=== PATIENT | female | born 1990 | race Caucasian/White ===

== ENCOUNTER 2024-10-04 09:40 | Emergency (ER) | payer OTHER, SELFPAY ==
[2024-10-04 10:38] VITALS: BP 152/92; PULSE 125; RESP 18; TEMP 37.7; O2SAT 98; BMI 43.4
[2024-10-04 11:09] LABS: Basophils Percent Auto 0.3 % (0-2); Eosinophils Percent Auto 0.3 % (0-4); Hematocrit 39.7 % (37.0-47.0); Imm Gran Abs Auto 0.07 X10*3/uL (0.00-0.03); Imm Gran Pct Auto 0.5 % (0.0-0.4); Lymphocytes Absolute Auto 0.6 X10*3/uL (1.2-4.9); Lymphocytes Percent Auto 4.2 % (20-40); MANUAL DIFF FLAG SCAN; Mean Corpuscular HGB Conc 32.7 g/dl (31.0-35.0); Mean Corpuscular Hemoglobin 27.1 pg (27.0-33.0); Mean Corpuscular Volume 82.9 fL (80.0-98.0); Mean Platelet Volume 9.8 fL (9.4-12.3); Monocytes Absolute Auto 0.4 X10*3/uL (0.1-1.2); Neutrophils Absolute Auto 12.6 x10*3/uL (2.0-8.3); Neutrophils Percent Auto 91.7 % (45-73); Platelet Count 260 X10*3/uL (160-400); Red Blood Count 4.79 X10*6/uL (4.20-5.50); Red Cell Distribution Width 13.3 % (11.0-16.0); SCAN SMEAR FLAG 1; White Blood Count 13.8 X10*3/uL (4.8-10.8)
[2024-10-04 11:31] LABS: SLIDE REVIEW VERIFIED
[2024-10-04 11:45] LABS: Alanine Aminotransferase 33 U/L (0-31); Albumin Level 4.4 g/dL (3.5-5.0); Anion Gap 14 (12-20); Aspartate Amino Transferase 28 U/L (5-31); Bilirubin Total 1.4 mg/dL (0.0-1.0); Blood Urea Nitrogen 13 mg/dL (9-16); Calcium 9.2 mg/dL (8.4-10.2); Carbon Dioxide 24 mmol/L (22-29); Chloride 105 mmol/L (96-108); Creatinine Clr Calc Pharmacy 150.4; Estimated Glomerular Filt Rate > 60; Glucose Random 111 mg/dL (60-115); Sodium 139 mmol/L (135-145); Total Protein 8.3 g/dL (6.5-8.0)
[2024-10-04 11:52] LABS: Influenza A PCR NEGATIVE (Negative); Influenza B PCR NEGATIVE (Negative); Resp Syncy Virus RNA Qual PCR NEGATIVE (Negative); SARS COV2 PCR INHOUSE NEGATIVE (Negative)
--- NOTE | 2024-10-04 12:16 | ED.NAVMDI ---
HPI - Nausea/Vomiting/Diarrhea General Chief complaint: Nausea/Vomiting/Diarrhea Stated complaint: n/v Time Seen by Provider: 10/04/24 12:15 Source: patient Mode of arrival: ambulatory Limitations: no limitations History of Present Illness ED Provider: Tyler Colby PA-C HPI Narrative: 34 yo female presenting to the ER for evaluation of N/V/D and lower abdominal pain for the last 24 hours. 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 Patient states she started having upset stomach yesterday afternoon and by 19:00 last night she developed intractable vomiting. She states she has vomited countless times, bilious fluid along with some blood-streaked fluid. She has had several episodes of loose, nonbloody stools. She has had intermittent diffuse abdominal cramping as well. She has tried to drink water but ends up vomiting at right back up. She denies any fevers but has diffuse chills and body aches. She feels weak and fatigued. Denies chance of , urinary symptoms are negative. MD elicited complaint: nausea, vomiting, diarrhea and abdominal pain Onset (ago): hour(s) Description of vomiting: bilious and blood-streaked Description of diarrhea: loose Associated nausea: Yes Associated abdominal pain: Yes Location of pain: diffuse Radiation: diffuse Pain consistency: intermittent Severity: severe Quality: cramping Exacerbating factors: eating Relieving factors: none Context: sick contacts Associated symptoms: myalgias, headaches, loss of appetite, malaise, nausea/vomiting and weakness Related Data Previous Rx's ?Medication ?Instructions ?Recorded ondansetron 4 mg disintegrating 4 mg PO Q8H PRN nausea and 10/04/24 tablet vomiting #14 tabs Allergies Allergy/AdvReac Type Severity Reaction Status Date / Time Sulfa (Sulfonamide Allergy Unknown ANAPHYLAXIS Verified 10/04/24 10:39 Antibiotics) [SULFA (SULFONAMIDE ANTIBIOTICS)] Review of Systems Review of Systems: Yes all other systems are reviewed and are negative Gastrointestinal: Gastrointestinal: Reports nausea PMFSH Social History Social History Advance Directives: No Advance Directives Information Provided: No Do you have a plan to hurt others: No Plan Physical Exam Vital Signs: Vital Signs: Last Vital Signs Temp 99.9 F 10/04/24 12:59 Pulse 97 10/04/24 12:59 Resp 18 10/04/24 12:59 BP 152/92 H 10/04/24 10:38 Pulse Ox 100 10/04/24 12:59 O2 Del Method Room Air 10/04/24 12:59 BMI result Body Mass Index 43.4 Appearance: Alert. Oriented X3. Appears uncomfortable and in pain Head: normocephalic, atraumatic. Eyes: Pupils equal, round and reactive to light. ENT: Pharynx normal. No tonsillar swelling or exudate. Neck: Normal inspection. Neck supple. CVS: Tachycardic, regular rhythm, heart rate 120. Pulses normal. Respiratory: No respiratory distress. Breath sounds normal. Abdomen: Soft with mild diffuse tenderness to deep palpation only, no rebound or guarding +BS x4 Skin: Skin warm and dry. Normal skin color. Normal skin turgor. No rashes. Extremities: No lower extremity edema. No joint swelling. Neuro/psych: Oriented X 3. No motor deficit. No sensory deficit. CN II-XII intact. Normal speech and cognition. Course Reevaluation(s) Reevaluation #1: patient feeling much better upon re-evaluation. She was given 2 doses of Zofran and morphine, was able to sleep. She feels like the IV fluids really helped her. She is now tolerating kimberly wil and has minimal nausea. No vomiting here. Comfortable discharge home, likely has norovirus. We discussed supportive care and symptomatic management as well as return pr Time: 16:14 Medications Administered Discontinued Medications Generic Name Dose Route Start Last Admin Trade Name Freq PRN Reason Stop Dose Admin Lactated Ringer's 1,000 mls @ 999 mls/hr 10/04/24 12:30 10/04/24 15:10 Lr IV 10/04/24 13:30 Infused .Q1H1M ANGEL Infusion Lactated Ringer's 1,000 mls @ 999 mls/hr 10/04/24 14:45 10/04/24 15:14 Lr IV 10/04/24 15:45 999 mls/hr .Q1H1M ANGEL Administration Ketorolac Tromethamine 30 mg 10/04/24 13:09 10/04/24 13:18 Ketorolac Tromethamine 30 Mg/Ml Vial IVPUSH 10/04/24 13:10 30 mg ONCE ONE Administration Morphine Sulfate 4 mg 10/04/24 12:18 10/04/24 12:32 Morphine Sulfate 4 Mg/Ml Cartridge IVPUSH 10/04/24 12:19 4 mg ONCE ONE Administration Protocol Morphine Sulfate 4 mg 10/04/24 14:50 10/04/24 15:15 Morphine Sulfate 4 Mg/Ml Cartridge IVPUSH 10/04/24 14:51 4 mg ONCE ONE Administration Protocol Ondansetron HCl 4 mg 10/04/24 12:16 10/04/24 12:32 Ondansetron Hcl 4 Mg/2 Ml Vial IVPUSH 10/04/24 12:17 4 mg ONCE ONE Administration Ondansetron HCl 4 mg 10/04/24 13:09 10/04/24 13:19 Ondansetron Hcl 4 Mg/2 Ml Vial IVPUSH 10/04/24 13:10 4 mg ONCE ONE Administration Medical Decision Making Medical Decision Making [facility] Narrative: 34-year-old female with no significant medical history presents to the ER for evaluation of almost 24 hours of nausea, vomiting, diarrhea, diffuse abdominal cramping and pains. She has a positive exposure to norovirus. She arrives to the ER tearful, uncomfortable, tachycardic. She is extremely nauseous. IV was established and she was given IV fluids and Zofran. Lab workup revealing for mild leukocytosis of 13.2, mildly elevated bilirubin, AST, ALP normal with ALT 33. lipase is normal. Patient was given 2 L of IV fluid, 2 doses of Zofran, 2 doses of morphine, she was able to rest and sleep. Upon awakening she felt much better. She is able to tolerate p.o.. Abdominal exam is reassuring. Most likely has norovirus and symptomatically she is significantly improved after treatment. She would like to go home. Comfortable discharge home with p.r.n. Zofran, bland diet, p.r.n. Imodium and Pepto. Differential Diagnosis Differential Diagnoses: The differential diagnosis associated with the presentation includes Gastroenteritis, norovirus, cholecystitis, appendicitis, dehydration, SHANTHI, UTI Admission/Observation Consideration of admission/observation: Escalation of care including admission/observation considered Lab Data [facility] Lab Attestation statement: I reviewed the patient's lab results. mild leukocytosis, insignificant LFTs 10/04/24 11:01 10/04/24 11:01 Labs: Lab Results 10/04/24 Range/Units 11:01 WBC 13.8 H (4.8-10.8) X10*3/uL RBC 4.79 (4.20-5.50) X10*6/uL Hgb 13.0 (12.0-16.0) g/dl Hct 39.7 (37.0-47.0) % MCV 82.9 (80.0-98.0) fL MCH 27.1 (27.0-33.0) pg MCHC 32.7 (31.0-35.0) g/dl RDW 13.3 (11.0-16.0) % Plt Count 260 (160-400) X10*3/uL MPV 9.8 (9.4-12.3) fL Immature Gran % (Auto) 0.5 H (0.0-0.4) % Neut % (Auto) 91.7 H (45-73) % Lymph % (Auto) 4.2 L (20-40) % Boyle % (Auto) 3.0 (2-11) % Eos % (Auto) 0.3 (0-4) % Baso % (Auto) 0.3 (0-2) % Lymph # (Auto) 0.6 L (1.2-4.9) X10*3/uL Boyle # (Auto) 0.4 (0.1-1.2) X10*3/uL Eos # (Auto) 0.0 (0.0-0.4) X10*3/uL Baso # (Auto) 0.0 (0.0-0.2) X10*3/uL Abs Immat Gran (auto) 0.07 H (0.00-0.03) X10*3/uL Absolute Neuts (auto) 12.6 H (2.0-8.3) x10*3/uL Absolute Nucleated RBC 0.000 (0.0-0.012) X10*3/uL Nucleated RBC % (auto) 0.0 (0.0-0.2) /100WBC Smear Tech's Comments VERIFIED Sodium 139 (135-145) mmol/L Potassium 4.0 (3.3-5.1) mmol/L Chloride 105 (96-108) mmol/L Carbon Dioxide 24 (22-29) mmol/L Anion Gap 14 (12-20) BUN 13 (9-16) mg/dL Creatinine 0.74 (0.5-1.4) mg/dL Estim Creat Clear Calc 150.4 Estimated GFR > 60 Random Glucose 111 (60-115) mg/dL Calcium 9.2 (8.4-10.2) mg/dL Total Bilirubin 1.4 H (0.0-1.0) mg/dL AST 28 (5-31) U/L ALT 33 H (0-31) U/L Alkaline Phosphatase 68 (39-117) U/L Total Protein 8.3 H (6.5-8.0) g/dL Albumin 4.4 (3.5-5.0) g/dL Lipase 12 (8-78) U/L Influenza Type A (PCR) NEGATIVE (Negative) Influenza Type B (PCR) NEGATIVE (Negative) RSV RNA Qual (PCR) NEGATIVE (Negative) SARS-CoV-2 RNA (RT-PCR) NEGATIVE (Negative) Independent Historian Clinical information obtained from an independent historian. History obtained from or confirmed by: Spouse Tests considered The following testing was considered but not selected: CT scan of the abdomen was considered however her exam was nonfocal and her symptoms improved significantly after treatment, repeat abdominal exam without acute abdomen Prescription Management I considered prescription management with: Pain Medication and Antibiotic Critical Care Time Critical Care Time Critical Care Time: Yes Total Critical Care Time: 32 Attestation: I have personally provided critical care time exclusive of time spent on separately billable procedures. Time includes review of lab data, bedside reassessment after multiple doses of IV narcotics, and monitoring for potential decompensation. Intervention performed as documented. Discharge Plan Discharge Clinical Impression: Gastroenteritis Patient Disposition: Home, Self-Care Instructions: Gastroenteritis (DC) Additional Instructions: You lab workup today was unremarkable. You most likely have a viral GI bug also known as gastroenteritis, likely Norovirus Treatment is supportive care, symptoms usually resolve on their own in 48-72 hours. Recommend rest and plenty of oral hydration. Stick to a bland diet like soup and toast while you are not feeling well. Take the prescribed medication as needed for nausea. Recommend over the counter Pepto Bismol or Imodium for upset stomach and diarrhea. Follow up with your doctor as needed. If you develop new or worsening symptoms call 911 or come back to the ER for further evaluation. Prescriptions: New ondansetron 4 mg tablet,disintegrating 4 mg PO Q8H PRN (Reason: nausea and vomiting) Qty: 14 0RF Stand Alone Forms: Work/School Release Print Language: Algerian
[2024-10-04 12:25] VITALS: TEMP 36.7
[2024-10-04] MEDS: Morphine Sulfate 4 MG/ML CARTRIDGE IVPUSH ×2 (12:32→15:15)
[2024-10-04] MEDS: Lactated Ringers 1,000 ML 999 ML IV ×2 (12:32→15:14)
[2024-10-04] MEDS: ondansetron HCL 4 MG/2 ML VIAL IVPUSH ×2 (12:32→13:19)
[2024-10-04 12:59] VITALS: PULSE 97; RESP 18; TEMP 37.7; O2SAT 100
--- NOTE | 2024-10-04 13:06 | MHC.EDTECH ---
Hourly round and Vitals completed, patient feel very hot RN aware.
[2024-10-04] MEDS: Ketorolac Tromethamine 30 MG/ML VIAL IVPUSH (13:18)
[2024-10-04 14:10] LABS: Alkaline Phosphatase 68 U/L (39-117)
--- OUTSIDE RECORDS SUMMARY | 2024-10-04 14:37 | XMS_ITS | Clinical Summary ---
Author Organization [facility] Address [address] [place] [address] Care Team Providers Care Center Receptionist Name Role Phone Lanny Alarcon MD Primary Care Provider Allergies Active Allergy Reactions Criticality Noted Date Comments Dust 02/09/2022 Molds & Smuts 02/09/2022 Sulfa Antibiotics 02/09/2022 Medications Medication Sig Dispensed Refills Start Date End Date Status amoxicillin-clavulanat e (AUGMENTIN) 875-125 MG per tablet TAKE 1 TABLET (ORAL) 2 TIMES PER DAY FOR 10 DAYS FOR INFECTION--TAKE WITH FOOD 0 02/03/2022 Active Social History Tobacco Use Types Packs/Day Years Used Date Smoking Tobacco: Never Smokeless Tobacco: Never Alcohol Use Standard Drinks/Week Comments Not Currently 0 (1 standard drink = 0.6 oz pur e alcohol) Sex and Gender Information Value Date Recorded Sex Assigned at Not on file Gender Identity Not on file Sexual Orientation Not on file Job Start Date Occupation Industry Not on file Not on file Not on file Last Filed Vital Signs Vital Sign Reading Time Taken Comments Blood Pressure 136/90 02/09/2022 10:48 AM EDT Pulse - - Temperature - - Respiratory Rate - - Oxygen Saturation - - Inhaled Oxygen Concentration - - Weight 112.9 kg (249 lb) 02/09/2022 10:48 AM EDT Height 170.2 cm (5' 7 ) 02/09/2022 10:48 AM EDT Body Mass Index 39 02/09/2022 10:48 AM EDT Plan of Treatment Health Maintenance Due Date Last Done Comments Hepatitis B Vaccines (1 of 3 - 3-dose series) 1992 Hepatitis C Screening 1992 COVID-19 Vaccine (#1) 1992 Depression Screening 2004 BMI Counseling 02/17/2010 Preventative Health Evaluation 02/17/2010 DTap / Tdap / Td (1 - Tdap) 02/17/2011 Cervical Cancer Screening (P ap Smear) 02/17/2013 Influenza Vaccine (#1) 2024 Pneumococcal Vaccine Aged Out No long er eligible based on patient's age to complete this topic RSV Ped < 20 months Aged Out No longe r eligible based on patient's age to complete this topic Care Teams Center Receptionist Relationship Specialty Start Date End Date [place] [id number] PCP - General Family Medicine 02/09/22
[2024-10-04 16:12] LABS: Lipase 12 U/L (8-78)
[2024-10-04 16:17] VITALS: BP 132/76; PULSE 76; RESP 18; O2SAT 97
[2024-10-04] MEDS: Metoclopramide HCl 10 MG/2 ML VIAL IVPUSH (17:14)
[2024-10-04] MEDS: diphenhydrAMINE HCL 50 MG/ML VIAL 25 MG IVPUSH (17:14)
[2024-10-04 18:06] VITALS: BP 132/76; PULSE 76; RESP 18; TEMP 36.8; O2SAT 97
== END 2024-10-04 18:08 | disposition home or self-care (01) ==
PROVIDERS: Physician Assistant; Emergency Provider Emergency Medicine; PCP Family Medicine
DX: K52.9 Noninfective gastroenteritis and colitis, unspecified (principal); R11.2 Nausea with vomiting, unspecified; R10.30 Lower abdominal pain, unspecified; Z03.818 Encounter for observation for suspected exposure to other biological agents ruled out
CPT/HCPCS: 0241U; 36415; 80053; 83690; 85025; 96361; 96374; 96375; 96376; 99284; J1200; J1885; J2270; J2405; J2765; J7120